=== PATIENT | female | born 1995 | race Caucasian/White ===

== ENCOUNTER 2023-08-01 04:30 | Emergency (ER) | payer BC ==
[~2023-08-01] VITALS: Ht 167.6 cm; Wt 59.0 kg
[~2023-08-01 04:30] MED LIST: FLUO20CA36 PO; GABA600T12 PO; SERT100T PO
[2023-08-01 05:42] VITALS: BP 108/59; O2SAT 99
== END 2023-08-01 05:43 | disposition home or self-care (01) ==
LOC: ER 04:32
DX: F41.9 Anxiety disorder, unspecified (principal); R06.00 Dyspnea, unspecified; R12 Heartburn; R00.2 Palpitations; R30.0 Dysuria; Z79.899 Other long term (current) drug therapy; Z88.5 Allergy status to narcotic agent
CPT/HCPCS: A4606; A4663